=== PATIENT | female | born 1975 | race Hispanic/Latino ===

== ENCOUNTER 2017-05-07 04:18 | Emergency (ER) | payer OTHER ==
[2017-05-07 04:30] VITALS: BMI 26.9
[2017-05-07] MEDS ORDERED: Sodium Chloride 0.9% 1,000 ML IV STA (04:38)
[2017-05-07 04:46] VITALS: BP 125/69; PULSE 54; RESP 17; TEMP 97.5; O2SAT 100
--- NOTE | 2017-05-07 04:51 | ED PDOC ---
Arrival/HPI - General Chief Complaint: GI Problem Time Seen by Provider: 05/07/17 04:33 Historian: Patient - History of Present Illness Narrative History of Present Illness (Text): 05/07/17 04:44 41 year old female, with past medical history of gastric bypass, intussesception , abdominal surgery and repair of incisonal hernia, presents to the Emergency department complaining of nausea, vomiting, diarrhea, headache and abdominal discomfort since yesterday. Patient informs visiting dentist for an abscess for which she was prescribed penicillin on Wednesday. As per patient, the symptoms may be adverse effects from the penicillin and requests medical evaluation. Patient informs taking tylenol and nausea medication with improvement to symptoms. Patient states she had sick contact at home. Patient states her last menstrual period was three months ago and is currently on injectable control medication. Patient denies any fever, chills, chest pain, shortness of breath, trauma or any other complaints. Time/Duration: 24 hours Symptom Onset: Gradual Symptom Course: Improving Quality: Aching Activities at Onset: Light Context: Home Past Medical History - Provider Review Nursing Documentation Reviewed: Yes - Infectious Disease Hx of Infectious Diseases: None - Past Medical History Past Medical History: No Previous - Cardiac Hx Cardiac Disorders: No Hx Pacemaker: No - Pulmonary Hx Respiratory Disorders: No - Neurological Hx Neurological Disorder: No - HEENT Hx HEENT Disorder: No - Renal Hx Renal Disorder: No - Endocrine/Metabolic Hx Endocrine Disorders: No - Hematological/Oncological Hx Blood Disorders: No - Integumentary Hx Dermatological Disorder: No Other/Comment: PIERCING -NOSE - Musculoskeletal/Rheumatological Hx Musculoskeletal Disorders: No Hx Falls: No - Gastrointestinal Hx Gastrointestinal Disorders: Yes (GASTRIC BYPASS SX,) Other/Comment: 09-18-15 EXPLORATORY LAP,POST RESECTION OF BOWEL ANSATOMOSIS REVISION,REPAIR OF INCISIONAL HERNIA,LYSIS OF INTRAABDOMINAL ADHESIONS. - Genitourinary/Gynecological Hx Genitourinary Disorders: No Other/Comment: 1 C SECTION,OVARIAN CYSTECTOMY - Psychiatric Hx Psychophysiologic Disorder: Yes (INSOMNIA) Hx Emotional Abuse: No Hx Physical Abuse: No Hx Substance Use: No - Surgical History Hx Gastric Bypass Surgery: Yes Other/Comment: intussuspection and adhesion SX - Anesthesia Hx Anesthesia Reactions: No Hx Malignant Hyperthermia: No - Suicidal Assessment Feels Threatened In Home Enviroment: No Family/Social History - Physician Review Nursing Documentation Reviewed: Yes Family/Social History: No Known Family HX Smoking Status: Never Smoked Hx Alcohol Use: No Hx Substance Use: No Allergies/Home Meds Allergies/Adverse Reactions: Allergies No Known Allergies Allergy (Verified 09/18/15 18:32) Home Medications: Home Meds Medication Instructions Recorded Confirmed Acetaminophen [Tylenol Extra 500 mg PO DAILY PRN 09/11/15 02/21/16 Strength] Ascorbic Acid [Vitamin C] 1,000 mg PO DAILY 09/11/15 02/21/16 Cholecalciferol (Vitamin D3) 1,000 iu PO DAILY 09/11/15 02/21/16 [Vitamin D3] Multivit-Minerals/Ferrous Fum 1 tbs PO DAILY 09/11/15 02/21/16 [Multivitamin Liquid] Zolpidem [Ambien] 15 mg PO HS 09/11/15 02/21/16 Fioricet 1 tab PO Q6H PRN 09/18/15 02/21/16 Review of Systems - Physician Review All systems were reviewed & negative as marked: Yes - Review of Systems Constitutional: Normal. absent: Fevers Eyes: Normal ENT: Normal Respiratory: Normal. absent: SOB Cardiovascular: Normal. absent: Chest Pain Gastrointestinal: Abdominal Pain, Diarrhea, Nausea, Vomiting Genitourinary Female: Normal Musculoskeletal: Normal Skin: Normal Neurological: Headache Endocrine: Normal Hemo/Lymphatic: Normal Psychiatric: Normal Physical Exam Vital Signs Reviewed: Yes Vital Signs Temp Pulse Resp BP Pulse Ox 05/07/17 04:35 97.5 F L 54 L 17 125/69 100 Temperature: Afebrile Blood Pressure: Normal Pulse: Bradycardic Respiratory Rate: Normal Appearance: Positive for: Well-Appearing, Non-Toxic, Comfortable Pain Distress: None Mental Status: Positive for: Alert and Oriented X 3 - Systems Exam Head: Present: Atraumatic, Normocephalic Pupils: Present: PERRL Extroacular Muscles: Present: EOMI Conjunctiva: Present: Normal Mouth: Present: Dry Neck: Present: Normal Range of Motion Respiratory/Chest: Present: Clear to Auscultation, Good Air Exchange. No: Respiratory Distress, Accessory Muscle Use Cardiovascular: Present: Regular Rate and Rhythm, Normal S1, S2. No: Murmurs Abdomen: Present: Normal Bowel Sounds. No: Tenderness, Distention, Peritoneal Signs Back: Present: Normal Inspection Upper Extremity: Present: Normal Inspection. No: Cyanosis, Edema Lower Extremity: Present: Normal Inspection. No: Edema Neurological: Present: GCS=15, CN II-XII Intact, Speech Normal Skin: Present: Warm, Dry, Normal Color. No: Rashes Psychiatric: Present: Alert, Oriented x 3, Normal Insight, Normal Concentration Medical Decision Making ED Course and Treatment: 05/07/17 04:53 Impression: 41 year old female presents to the Emergency department complaining of nausea, vomiting, diarrhea and abdominal pain. Plan: -- Labs -- IV Fluids -- Zofran -- Reassess and disposition Progress Notes: 05/07/17 04:54 - Lab Interpretations Lab Results: 05/07/17 04:54 05/07/17 04:54 Lab Results 05/07/17 04:54: Sodium 138, Potassium 4.1, Chloride 107, Carbon Dioxide 24, Anion Gap 12, BUN 8, Creatinine 0.6 L, Est GFR ( Amer) > 60, Est GFR (Non -Af Amer) > 60, Random Glucose 92, Calcium 8.4, Total Bilirubin 0.2, AST 29, ALT 43, Alkaline Phosphatase 37 L, Total Protein 5.7 L, Albumin 3.5, Globulin 2.1, Albumin/Globulin Ratio 1.6 05/07/17 04:54: WBC 3.7 L D, RBC 3.50, Hgb 10.1 L, Hct 32.1 L, MCV 91.7, MCH 28.9, MCHC 31.5, RDW 15.9 H, Plt Count 181, MPV 9.6, Gran % 36.0 L, Lymph % ( Auto) 55.2 H, [place] % (Auto) 6.4 H, Eos % (Auto) 1.6, Baso % (Auto) 0.8, Gran # 1.34 L, Lymph # 2.1, [place] # 0.2, Eos # 0.1, Baso # 0.03 - Medication Orders Current Medication Orders: Discontinued Medications Acetaminophen (Tylenol 325mg Tab) 650 mg PO STAT STA Stop: 05/07/17 05:13 Last Admin: 05/07/17 05:56 Dose: 650 mg MAR Pain/Vitals Document 05/07/17 05:56 SS (Rec: 05/07/17 05:56 SS [id number]) Pain Reassessment Is This A Pain ReAssessment? No Sleep Is patient sleeping during reassessment? No Presence of Pain Presence of Pain Yes Location Pain Location Body Probate Judge Sodium Chloride (Sodium Chloride 0.9%) 1,000 mls @ 999 mls/hr IV .Q1H1M STA Stop: 05/07/17 05:38 Last Admin: 05/07/17 05:03 Dose: 999 mls/hr eMAR Start Stop Document 05/07/17 05:03 SS (Rec: 05/07/17 05:03 SS [id number]) Intravenous Solution Start Date 05/07/17 Start Time 05:03 End Date 05/07/17 End time 06:03 Total Infusion Time 60 Ondansetron HCl (Zofran Inj) 4 mg IVP STAT STA Stop: 05/07/17 04:41 Last Admin: 05/07/17 05:03 Dose: 4 mg IVP Administration Document 05/07/17 05:03 SS (Rec: 05/07/17 05:03 SS [id number]) Charges for Administration # of IVP Administrations 1 - Scribe Statement The provider has reviewed the documentation as recorded by the Scribe Hernán Fowler. All medical record entries made by the Scribe were at my direction and personally dictated by me. I have reviewed the chart and agree that the record accurately reflects my personal performance of the history, physical exam, medical decision making, and the department course for this patient. I have also personally directed, reviewed, and agree with the discharge instructions and disposition. Disposition/Present on Arrival - Present on Arrival Any Indicators Present on Arrival: No History of DVT/PE: No History of Uncontrolled Diabetes: No Urinary Catheter: No History of Decub. Ulcer: No History Surgical Site Infection Following: None - Disposition Have Diagnosis and Disposition been Completed?: Yes Diagnosis: Gastroenteritis Disposition: HOME/ ROUTINE Disposition Time: 06:10 Patient Plan: Discharge Condition: STABLE Prescriptions: Ondansetron ODT [Zofran ODT] 8 mg SL TID PRN #12 odt PRN Reason: Nausea/Vomiting Forms: [employer] (Rwandan)
[2017-05-07 05:16] LABS: BASO # 0.03 K/mm3 (0.0-2.0); BASO % 0.8 % (0.0-3.0); EOS # 0.1 (0.0-0.7); EOS % 1.6 % (1.5-5.0); GRAN # 1.34 (1.4-6.5); HEMOGLOBIN 10.1 g/dL (12.0-16.0); LYMPH # 2.1 (1.2-3.4); LYMPH % 55.2 % (22.0-35.0); MEAN CELL VOLUME 91.7 fl (80.0-105.0); MEAN CORPUSCULAR HEMOGLOBIN 28.9 pg (25.0-35.0); MEAN CORPUSCULAR HGB CONC 31.5 g/dl (31.0-37.0); MEAN PLATELET VOLUME 9.6 fl (7.0-11.0); MONO # 0.2 (0.1-0.6); MONO % 6.4 % (1.0-6.0); RBC 3.5 10^6/uL (3.5-6.1); RED CELL DISTRIBUTION WIDTH 15.9 % (11.5-14.5); WHITE BLOOD COUNT 3.7 10^3/ul (4.5-11.0)
[2017-05-07 05:41] LABS: ALBUMIN 3.5 g/dL (3.0-4.8); ALT/SGPT 43 U/L (7-56); AST/SGOT 29 U/L (14-36); BLOOD UREA NITROGEN 8 mg/dL (7-21); CALCIUM 8.4 mg/dL (8.4-10.5); GFR AFRICAN-AMERICAN > 60; GFR NON-AFRICAN AMERICAN > 60
[2017-05-07 06:00] LABS: ALB/GLOB RATIO 1.6 (1.1-1.8)
== END 2017-05-07 06:50 | disposition home or self-care (01) ==
LOC: ED 04:18
DX: K52.9 Noninfective gastroenteritis and colitis, unspecified (principal); Z98.84 Bariatric surgery status
CPT/HCPCS: 80053; 85025; 96361; 96374; 99283; J2405; J7040

== ENCOUNTER 2017-08-08 21:49 | Observation (INO) | payer OTHER ==
--- NOTE | 2017-08-08 22:21 | ED PDOC ---
Arrival/HPI - General Chief Complaint: Abdominal Pain Time Seen by Provider: 08/08/17 22:14 Historian: Patient - History of Present Illness Narrative History of Present Illness (Text): 08/08/17 22:21 Maryse Grande is a 42 year old female, whose past medical history includes gastric bypasss, intussusception, small bowel resection, chronic anemia , and ventral hernia repair, who presents to the Emergency department after developing lower abdominal pain while vacationing in [place] yesterday. Patient states she returned home today and still experiencing lower abdominal pain, now present on both sides of abdomen with associated nausea. Patient denies any diarrhea, fever, chills, urinary symptoms, or any other complaints. Symptom Onset: Gradual Symptom Course: Unchanged Activities at Onset: Light Context: Home Past Medical History - Provider Review Nursing Documentation Reviewed: Yes - Travel History If Yes, travel location?: [place] - Infectious Disease Hx of Infectious Diseases: None - Past Medical History Past Medical History: No Previous - Cardiac Hx Cardiac Disorders: No Hx Pacemaker: No - Pulmonary Hx Respiratory Disorders: No - Neurological Hx Neurological Disorder: No - HEENT Hx HEENT Disorder: No - Renal Hx Renal Disorder: No - Endocrine/Metabolic Hx Endocrine Disorders: No - Hematological/Oncological Hx Blood Disorders: No - Integumentary Hx Dermatological Disorder: No Other/Comment: PIERCING -NOSE - Musculoskeletal/Rheumatological Hx Musculoskeletal Disorders: No Hx Falls: No - Gastrointestinal Hx Gastrointestinal Disorders: Yes (GASTRIC BYPASS SX,) Other/Comment: 09-18-15 EXPLORATORY LAP,POST RESECTION OF BOWEL ANSATOMOSIS REVISION,REPAIR OF INCISIONAL HERNIA,LYSIS OF INTRAABDOMINAL ADHESIONS. - Genitourinary/Gynecological Hx Genitourinary Disorders: No Other/Comment: 1 C SECTION,OVARIAN CYSTECTOMY - Psychiatric Hx Psychophysiologic Disorder: Yes (INSOMNIA) Hx Emotional Abuse: No Hx Physical Abuse: No Hx Substance Use: No - Surgical History Hx Gastric Bypass Surgery: Yes Other/Comment: intussuspection and adhesion SX - Anesthesia Hx Anesthesia Reactions: No Hx Malignant Hyperthermia: No - Suicidal Assessment Feels Threatened In Home Enviroment: No Family/Social History - Physician Review Nursing Documentation Reviewed: Yes Family/Social History: Unknown Family HX Smoking Status: Never Smoked Hx Alcohol Use: No Hx Substance Use: No Allergies/Home Meds Allergies/Adverse Reactions: Allergies No Known Allergies Allergy (Verified 09/18/15 18:32) Home Medications: Home Meds Medication Instructions Recorded Confirmed Acetaminophen [Tylenol Extra 500 mg PO DAILY PRN 09/11/15 08/09/17 Strength] Ascorbic Acid [Vitamin C] 1,000 mg PO DAILY 09/11/15 08/09/17 Cholecalciferol (Vitamin D3) 1,000 iu PO DAILY 09/11/15 08/09/17 [Vitamin D3] Multivit-Minerals/Ferrous Fum 1 tbs PO DAILY 09/11/15 08/09/17 [Multivitamin Liquid] Zolpidem [Ambien] 15 mg PO HS 09/11/15 08/09/17 Fioricet 1 tab PO Q6H PRN 09/18/15 08/09/17 Alprazolam [Xanax] 0.25 mg PO HS 08/09/17 08/09/17 MedroxyPROGESTERone [Depo-Provera] 1 bottle IM Q30D MDD [id number] 08/09/17 Review of Systems - Physician Review All systems were reviewed & negative as marked: Yes - Review of Systems Constitutional: Normal. absent: Fevers Eyes: Normal ENT: Normal Respiratory: Normal. absent: SOB, Cough Cardiovascular: Normal. absent: Chest Pain Gastrointestinal: Abdominal Pain, Nausea. absent: Diarrhea, Vomiting Genitourinary Female: Normal. absent: Dysuria, Frequency, Hematuria, Urine Output Changes Musculoskeletal: Normal. absent: Back Pain, Neck Pain Skin: Normal. absent: Rash Neurological: Normal. absent: Headache, Dizziness Endocrine: Normal Hemo/Lymphatic: Normal Psychiatric: Normal Physical Exam Vital Signs Reviewed: Yes Vital Signs Temp Pulse Resp BP Pulse Ox 08/08/17 23:49 56 L 18 122/65 99 08/08/17 21:49 98.1 F 60 18 121/80 100 Temperature: Afebrile Blood Pressure: Normal Pulse: Regular Respiratory Rate: Normal Appearance: Positive for: Well-Appearing, Non-Toxic, Comfortable Pain Distress: None Mental Status: Positive for: Alert and Oriented X 3 - Systems Exam Head: Present: Atraumatic, Normocephalic Pupils: Present: PERRL Extroacular Muscles: Present: EOMI Conjunctiva: Present: Normal Mouth: Present: Moist Mucous Membranes Neck: Present: Normal Range of Motion Respiratory/Chest: Present: Clear to Auscultation, Good Air Exchange. No: Respiratory Distress, Accessory Muscle Use Cardiovascular: Present: Regular Rate and Rhythm, Normal S1, S2. No: Murmurs Abdomen: Present: Tenderness (Diffuse tenderness to lower right and left abdomen , left greater than right), Guarding (Voluntary guarding). No: Distention, Peritoneal Signs, Rebound Back: Present: Normal Inspection Upper Extremity: Present: Normal Inspection. No: Cyanosis, Edema Lower Extremity: Present: Normal Inspection. No: Edema Neurological: Present: GCS=15, CN II-XII Intact, Speech Normal Skin: Present: Warm, Dry, Normal Color. No: Rashes Psychiatric: Present: Alert, Oriented x 3, Normal Insight, Normal Concentration Medical Decision Making ED Course and Treatment: 08/08/17 22:21 Impression: 42 year old female complaining of bilateral lower abdominal pain and nausea. Plan: -- CT Abdomen and Pelvis with IV contrast -- Labs, lipase -- Urinalysis -- IV fluids -- Zofran -- Toradol -- Reassess and disposition Prior Visits: Notes and results from previous visits were reviewed. On 05/07/2017, pt was seen in the Emergency department for nausea, vomiting, diarrhea, headache, and abdominal discomfort. Pt was d/c home. Progress Notes: 08/09/17 00:00 CT Abdomen and Pelvis shows: Lung bases: No acute findings. ABDOMEN: Liver: Unremarkable. No mass. Gallbladder and bile ducts: Gallstones. No significant ductal dilation. Pancreas: No ductal dilation. No mass. Spleen: No splenomegaly. Adrenals: No mass. Kidneys and ureters: No mass. No hydronephrosis. Stomach and bowel: Postsurgical changes of stomach. Postsurgical changes of small bowel. Small bowel intussusception within left midabdomen at level of postsurgical changes. No definite mural thickening. No obstruction. Appendix: Normal caliber. No definite inflammation. PELVIS: Bladder: Unremarkable. Reproductive: Unremarkable as visualized. ABDOMEN and PELVIS: Intraperitoneal space: Trace free fluid within pelvis. No free air. Bones/joints: No acute fracture. Soft tissues: Breast implants. Vasculature: Unremarkable. No aneurysm. Lymph nodes: No pathologically enlarged lymph nodes. IMPRESSION: 1. Small bowel intussusception. 2. Incidental/non-acute findings are described above. residential door unit installer paged. 08/09/17 00:06 Case discussed with advertising vice president certified pest control technician, who is aware and agrees with plan. 08/09/17 00:[address] Ugarte's service, awaiting call back. 08/09/17 00:[address] Dickinson, who is aware and agrees with plan. Accepts pt in to hospitalist service. [facility] be [facility] to [facility] for abdominal pain and intussusception. cmo & president notified, - Lab Interpretations Lab Results: 08/08/17 22:10 08/08/17 22:10 Lab Results 08/08/17 22:10: WBC 6.4 D, RBC 4.01, Hgb 11.0 L, Hct 34.7 L, MCV 86.5 D, MCH 27.4, MCHC 31.7, RDW 15.4 H, Plt Count 308, MPV 9.7 08/08/17 22:10: Sodium 142, Potassium 4.3, Chloride 102, Carbon Dioxide 27, Anion Gap 17, BUN 8, Creatinine 0.7, Est GFR ( Amer) > 60, Est GFR (Non- Af Amer) > 60, Random Glucose 104, Calcium 9.6, Total Bilirubin 0.3, AST 26, ALT 30, Alkaline Phosphatase 70, Total Protein 7.5, Albumin 4.8, Globulin 2.8, Albumin/Globulin Ratio 1.7, Lipase 410 H 08/08/17 22:10: Urine Color Yellow, Urine Appearance Clear, Urine pH 6.0, Ur Specific [place] 1.015, Urine Protein Negative, Urine Glucose (UA) Negative, Urine Ketones Negative, Urine Blood Negative, Urine Nitrate Negative, Urine Bilirubin Negative, Urine Urobilinogen 0.2, Ur Leukocyte Esterase Negative I have reviewed the lab results: Yes - RAD Interpretation Radiology Orders: 08/08/17 22:19 ABD & PELVIS IV CONTRAST ONLY [CT] Stat General Science Teacher: Radiologist - Medication Orders Current Medication Orders: Sodium Chloride (Sodium Chloride 0.9%) 1,000 mls @ 100 mls/hr IV .Q10H RODRI Last Admin: 08/08/17 22:23 Dose: 100 mls/hr eMAR Start Stop Document 08/08/17 22:23 JOL (Rec: 08/08/17 22:23 JOL [facility] [id number]) Intravenous Solution Start Date 08/08/17 Start Time 22:23 Discontinued Medications Hydromorphone HCl (Dilaudid) 1 mg IVP STAT STA Stop: 08/08/17 22:33 Last Admin: 08/08/17 22:35 Dose: 1 mg MAR Pain Assessment Document 08/08/17 22:35 JOL (Rec: 08/08/17 22:44 [facility]-[id number]) Pain Reassessment Is this a pain reassessment? No Sleep Is patient sleeping during reassessment? No Presence of Pain Presence of Pain Yes Pain Scale Used Pain Scale Used Numeric Location Left, Right or Bilateral Bilateral Upper or Lower Lower Pain Location Body Site Abdomen Description Intensity of Pain at present 9 Pain Behavior Guarding Withdrawal from Touch Restlessness Facial Grimacing Thrashing Aggravating Factors ADL's Changing Position IVP Administration Document 08/08/17 22:35 JOL (Rec: 08/08/17 22:44 [facility]-[id number]) Charges for Administration # of IVP Administrations 1 Hydromorphone HCl (Dilaudid) 1 mg IVP STAT STA Stop: 08/08/17 23:26 Last Admin: 08/08/17 23:31 Dose: 1 mg MAR Pain Assessment Document 08/08/17 23:31 JOL (Rec: 08/08/17 23:32 [facility]-[id number]) Pain Reassessment Is this a pain reassessment? No Sleep Is patient sleeping during reassessment? No Presence of Pain Presence of Pain Yes Pain Scale Used Pain Scale Used Numeric Location Left, Right or Bilateral Bilateral Upper or Lower Lower Pain Location Body Site Abdomen Description Intensity of Pain at present 7 Pain Behavior Moaning Restlessness Facial Grimacing IVP Administration Document 08/08/17 23:31 JOL (Rec: 08/08/17 23:32 [facility]-[id number]) Charges for Administration # of IVP Administrations 1 Ketorolac Tromethamine (Toradol) 30 mg IVP ONCE ONE Stop: 08/08/17 22:20 Last Admin: 08/08/17 22:23 Dose: 30 mg MAR Pain Assessment Document 08/08/17 22:23 JOL (Rec: 08/08/17 22:24 [facility]-[id number]) Pain Reassessment Is this a pain reassessment? No Sleep Is patient sleeping during reassessment? No Presence of Pain Presence of Pain Yes Pain Scale Used Pain Scale Used Numeric Location Left, Right or Bilateral Bilateral Upper or Lower Lower Pain Location Body Site Abdomen Description Description Stabbing Intensity of Pain at present 10 IVP Administration Document 08/08/17 22:23 [facility] (Rec: 08/08/17 22:24 [id number] Charges for Administration # of IVP Administrations 1 Re-Assess: MAR Pain Assessment Document 08/08/17 23:23 [facility] (Rec: 08/08/17 23:43 [id number] Pain Reassessment Is this a pain reassessment? Yes Sleep Is patient sleeping during reassessment? No Presence of Pain Presence of Pain Yes Pain Scale Used Pain Scale Used Numeric Location Left, Right or Bilateral Bilateral Upper or Lower Lower Pain Location Body Site Abdomen Description Intensity of Pain at present 9 Pain not relieved and LIP/MD was Yes: new med orders notified Ondansetron HCl (Zofran Inj) 4 mg IVP ONCE ONE Stop: 08/08/17 22:20 Last Admin: 08/08/17 22:23 Dose: 4 mg IVP Administration Document 08/08/17 22:23 [facility] (Rec: 08/08/17 22:23 [id number] Charges for Administration # of IVP Administrations 1 - Scribe Statement The provider has reviewed the documentation as recorded by the Gita Acosta Provider Scribe Attestation: All medical record entries made by the Scribe were at my direction and personally dictated by me. I have reviewed the chart and agree that the record accurately reflects my personal performance of the history, physical exam, medical decision making, and the department course for this patient. I have also personally directed, reviewed, and agree with the discharge instructions and disposition. Disposition/Present on Arrival - Present on Arrival Any Indicators Present on Arrival: No History of DVT/PE: No History of Uncontrolled Diabetes: No Urinary Catheter: No History of Decub. Ulcer: No History Surgical Site Infection Following: None - Disposition Have Diagnosis and Disposition been Completed?: Yes Diagnosis: Abdominal pain, Intussusception Disposition: HOSPITALIZED Disposition Time: 00:39 Condition: STABLE Forms: [employer] (Armenian)
[2017-08-08] MEDS ORDERED: Sodium Chloride 0.9% 1,000 ML IV SCH (22:30)
[2017-08-08] MEDS ORDERED: HYDROmorphone 1 mg/ml ISec IVP STA ×2 (22:32→23:25)
[2017-08-08 22:38] LABS: MEAN CELL VOLUME 86.5 fl (80.0-105.0); MEAN CORPUSCULAR HEMOGLOBIN 27.4 pg (25.0-35.0); MEAN CORPUSCULAR HGB CONC 31.7 g/dl (31.0-37.0); MEAN PLATELET VOLUME 9.7 fl (7.0-11.0); RBC 4.01 10^6/uL (3.5-6.1); RED CELL DISTRIBUTION WIDTH 15.4 % (11.5-14.5); WHITE BLOOD COUNT 6.4 10^3/ul (4.5-11.0)
[2017-08-08 22:39] LABS: URINE BILIRUBIN NEGATIVE (NEGATIVE); URINE BLOOD NEGATIVE (NEGATIVE); URINE GLUCOSE (UA) NEGATIVE (NEGATIVE); URINE LEUKOCYTE ESTERASE NEGATIVE Leu/uL (NEGATIVE); URINE PROTEIN NEGATIVE mg/dL (<30 mg/dL); URINE UROBILINOGEN 0.2 E.U./dL (<1 E.U./dL)
[2017-08-08 22:40] LABS: ALB/GLOB RATIO 1.7 (1.1-1.8); ALBUMIN 4.8 g/dL (3.0-4.8); ALT/SGPT 30 U/L (7-56); AST/SGOT 26 U/L (14-36); BLOOD UREA NITROGEN 8 mg/dL (7-21); CALCIUM 9.6 mg/dL (8.4-10.5); GFR AFRICAN-AMERICAN > 60; GFR NON-AFRICAN AMERICAN > 60; LIPASE 410 U/L (23-300)
[2017-08-08 22:41] LABS: URINE APPEARANCE CLEAR (CLEAR); URINE COLOR YELLOW (YELLOW)
[2017-08-08] MEDS ORDERED: Iohexol 350 MG/100 ML VIAL ONE (22:54)
--- NOTE | 2017-08-08 23:54 | CT ---
EXAM: CT Abdomen and Pelvis With Intravenous Contrast CLINICAL HISTORY: 42 years old, female; Pain; Abdominal pain; Acute; Additional info: Lower abdominal pain TECHNIQUE: Axial computed tomography images of the abdomen and pelvis with intravenous contrast. All CT scans at this facility use one or more dose reduction techniques, viz.: automated exposure control; ma/kV adjustment per patient size (including targeted exams where dose is matched to indication; i.e. head); or iterative reconstruction technique. Coronal and sagittal reformatted images were created and reviewed. CONTRAST: 100 mL of OMNI 350 administered intravenously. COMPARISON: CT - ABD PELVIS PO IV CONTRAST 2015-09-04 04:58 FINDINGS: Lung bases: No acute findings. ABDOMEN: Liver: Unremarkable. No mass. Gallbladder and bile ducts: Gallstones. No significant ductal dilation. Pancreas: No ductal dilation. No mass. Spleen: No splenomegaly. Adrenals: No mass. Kidneys and ureters: No mass. No hydronephrosis. Stomach and bowel: Postsurgical changes of stomach. Postsurgical changes of small bowel. Small bowel intussusception within left midabdomen at level of postsurgical changes. No definite mural thickening. No obstruction. Appendix: Normal caliber. No definite inflammation. PELVIS: Bladder: Unremarkable. Reproductive: Unremarkable as visualized. ABDOMEN and PELVIS: Intraperitoneal space: Trace free fluid within pelvis. No free air. Bones/joints: No acute fracture. Soft tissues: Breast implants. Vasculature: Unremarkable. No aneurysm. Lymph nodes: No pathologically enlarged lymph nodes. IMPRESSION: 1. Small bowel intussusception. 2. Incidental/non-acute findings are described above.
[2017-08-09] MEDS ORDERED: HYDROmorphone 1 mg/ml ISec IVP STA (00:55)
--- NOTE | 2017-08-09 01:20 | CP.PCM.CON ---
History of Present Illness - History of Present Illness History of Present Illness: Surgery: Dr. Travis CC: Intussusecption HPI: 42F w. extensive surgical hx, underwent gastric bypass in 1996, this was complicated by intussusception in September of 2015 which required laparotomy, revision of gastric bypass and extensive TEX. In February of 2016, pt returned w. incarcerated incisional hernia, which required open repair w. mesh. Pt has not had any symptoms since this past weekend. She states that Wednesday night she began to notice intermittent R sided abd pain. She states that the pain increased in severity, moved to the L side, and became constant. Pain is described as stabbing. There are no alleviating or aggravating factors. She reports nausea, but no vomiting. She denies diarrhea. She states that she is passing flatus and having BM. She denies fever but reports occassional chills. In ED CT was done which showed L mid abd intussusception, for which surgery was consulted. PMH: anxiety PSH: Gastric bypass, revision of gastric bypass and TEX 2/2 intussuception, open repair of incisional hernia Meds: MAR reviewed NKDA Social: +ETOH, no tobacco/drugs Fhx: Non-contributory Review of Systems - Review of Systems All systems: reviewed and no additional remarkable complaints except (HPI) Past Patient History - Infectious Disease Hx of Infectious Diseases: None - Past Social History Smoking Status: Never Smoked - CARDIAC Hx Cardiac Disorders: No Hx Pacemaker: No - PULMONARY Hx Respiratory Disorders: No - NEUROLOGICAL Hx Neurological Disorder: No - HEENT Hx HEENT Problems: No - RENAL Hx Chronic Kidney Disease: No - ENDOCRINE/METABOLIC Hx Endocrine Disorders: No - HEMATOLOGICAL/ONCOLOGICAL Hx Blood Disorders: No - INTEGUMENTARY Hx Dermatological Problems: No Other/Comment: PIERCING -NOSE - MUSCULOSKELETAL/RHEUMATOLOGICAL Hx Musculoskeletal Disorders: No Hx Falls: No - GASTROINTESTINAL Hx Gastrointestinal Disorders: Yes (GASTRIC BYPASS SX,) Other/Comment: 09-18-15 EXPLORATORY LAP,POST RESECTION OF BOWEL ANSATOMOSIS REVISION,REPAIR OF INCISIONAL HERNIA,LYSIS OF INTRAABDOMINAL ADHESIONS. - GENITOURINARY/GYNECOLOGICAL Hx Genitourinary Disorders: No Other/Comment: 1 C SECTION,OVARIAN CYSTECTOMY - PSYCHIATRIC Hx Psychophysiologic Disorder: Yes (INSOMNIA) Hx Emotional Abuse: No Hx Physical Abuse: No Hx Substance Use: No - SURGICAL HISTORY Hx Gastric Bypass Surgery: Yes Other/Comment: intussuspection and adhesion SX - ANESTHESIA Hx Anesthesia Reactions: No Hx Malignant Hyperthermia: No Meds Allergies/Adverse Reactions: Allergies Allergy/AdvReac Type Severity Reaction Status Date / Time No Known Allergies Allergy Verified 09/18/15 18:32 - Medications Medications: Current Medications Sodium Chloride (Sodium Chloride 0.9%) 1,000 mls @ 100 mls/hr IV .Q10H RODRI Last Admin: 08/08/17 22:23 Dose: 100 mls/hr Physical Exam - Constitutional Appears: Non-toxic, No Acute Distress - Head Exam Head Exam: ATRAUMATIC, NORMOCEPHALIC - Eye Exam Eye Exam: EOMI - ENT Exam ENT Exam: Mucous Membranes Moist, Normal External Ear Exam - Neck Exam Neck exam: Positive for: Full Rom - Respiratory Exam Respiratory Exam: NORMAL BREATHING PATTERN. absent: Accessory Muscle Use, Respiratory Distress - Cardiovascular Exam Cardiovascular Exam: REGULAR RHYTHM - GI/Abdominal Exam GI & Abdominal Exam: Soft, Tenderness (L mid abd). absent: Distended, Firm, Guarding, Hernia, Mass, Rebound, Rigid - Extremities Exam Extremities exam: Negative for: calf tenderness, pedal edema - Neurological Exam Neurological exam: Alert, Oriented x3 - Psychiatric Exam Psychiatric exam: Normal Affect, Normal Mood - Skin Skin Exam: Dry, Normal Color, Warm Results - Vital Signs Recent Vital Signs: Last Vital Signs Temp 98.1 F 08/08/17 21:49 Pulse 56 L 08/08/17 23:49 Resp 18 08/08/17 23:49 BP 122/65 08/08/17 23:49 Pulse Ox 99 08/08/17 23:49 - Labs Result Diagrams: 08/10/17 06:15 08/10/17 06:15 - Imaging and Cardiology CT scan - abdomen Status: Image reviewed by me, Report reviewed by me Assessment & Plan - Assessment and Plan (Free Text) Assessment: 42F wPascale intussuception Plan: -NPO -IVF -pain managememnt -serial abd exams -likely OR if no improvement in symptoms -will dana Salazar PGY3
[2017-08-09] MEDS: Lactated Ringer's 1,000 ML IV SCH ×2 (02:01→15:05)
--- NOTE | 2017-08-09 02:03 | CP.PCM.HP ---
<Bertram Love - Last Filed: 08/09/17 02:17> History of Present Illness - History of Present Illness History of Present Illness: This patient is a 42 year old female with a PMHx of Anxiety who presents complaining of left sided abdominal pain. Patient states that the pain started on Wednesday night on the right sided and was intermittent. The pain then migrated to the left side and became a constant, sharp, 8/10 pain. She denies any relieving or exacerbating factors. She attempted tylenol to relieve the pain without any success. Patient has a history of intussepception and multiple abdominal surgeries including a gastric bypass that was revised. Abdominal CT scan showed small bowel intussusception. Patient states she is having bowel movements and passing flatus. ROS POSITIVES: Abdominal Pain, Chills, Nausea, headache, urinary straining. NEGATIVES: Fever, chest pain, SOB, vomiting, diarrhea, blood in stool, melena , constipation, dysuria, urinary frequency, hematuria PMH: Anxiety PSH: Gastric bypass, revision of gastric bypass and TEX 2/2 intussuception, open repair of incisional hernia Allergies: Denies SocialHx: Denies tobacco or illicit drug use. Admits to EtOH use. FamilyHx: Non-Contributory. Meds: MAR reviewed Surgeon: Dr. Mcbride Present on Admission - Present on Admission Any Indicators Present on Admission: No Review of Systems - Review of Systems Review of Systems: As per HPI Past Patient History - Infectious Disease Hx of Infectious Diseases: None - Past Social History Smoking Status: Never Smoked - CARDIAC Hx Cardiac Disorders: No Hx Pacemaker: No - PULMONARY Hx Respiratory Disorders: No - NEUROLOGICAL Hx Neurological Disorder: No - HEENT Hx HEENT Problems: No - RENAL Hx Chronic Kidney Disease: No - ENDOCRINE/METABOLIC Hx Endocrine Disorders: No - HEMATOLOGICAL/ONCOLOGICAL Hx Blood Disorders: No - INTEGUMENTARY Hx Dermatological Problems: No Other/Comment: PIERCING -NOSE - MUSCULOSKELETAL/RHEUMATOLOGICAL Hx Musculoskeletal Disorders: No Hx Falls: No - GASTROINTESTINAL Hx Gastrointestinal Disorders: Yes (GASTRIC BYPASS SX,) Other/Comment: 09-18-15 EXPLORATORY LAP,POST RESECTION OF BOWEL ANSATOMOSIS REVISION,REPAIR OF INCISIONAL HERNIA,LYSIS OF INTRAABDOMINAL ADHESIONS. - GENITOURINARY/GYNECOLOGICAL Hx Genitourinary Disorders: No Other/Comment: 1 C SECTION,OVARIAN CYSTECTOMY - PSYCHIATRIC Hx Psychophysiologic Disorder: Yes (INSOMNIA) Hx Emotional Abuse: No Hx Physical Abuse: No Hx Substance Use: No - SURGICAL HISTORY Hx Gastric Bypass Surgery: Yes Other/Comment: intussuspection and adhesion SX - ANESTHESIA Hx Anesthesia Reactions: No Hx Malignant Hyperthermia: No Meds Allergies/Adverse Reactions: Allergies Allergy/AdvReac Type Severity Reaction Status Date / Time No Known Allergies Allergy Verified 09/18/15 18:32 Physical Exam - Additional Findings Additional findings: - Constitutional Appears: Non-toxic, No Acute Distress - Head Exam Head Exam: ATRAUMATIC, NORMOCEPHALIC - Eye Exam Eye Exam: EOMI - ENT Exam ENT Exam: Mucous Membranes Moist, Normal External Ear Exam - Neck Exam Neck exam: Positive for: Full Rom - Respiratory Exam Respiratory Exam: NORMAL BREATHING PATTERN. absent: Accessory Muscle Use, Respiratory Distress - Cardiovascular Exam Cardiovascular Exam: REGULAR RHYTHM - GI/Abdominal Exam GI & Abdominal Exam: Soft, Tenderness (Left mid abdomen). absent: Distended, Firm, Guarding, Hernia, Mass, Rebound, Rigid - Extremities Exam Extremities exam: Negative for: calf tenderness, pedal edema - Neurological Exam Neurological exam: Alert, Oriented x3 - Psychiatric Exam Psychiatric exam: Normal Affect, Normal Mood - Skin Skin Exam: Dry, Normal Color, Warm Results - Vital Signs Recent Vital Signs: Last Vital Signs Temp 98.1 F 08/08/17 21:49 Pulse 56 L 08/08/17 23:49 Resp 18 08/08/17 23:49 BP 122/65 08/08/17 23:49 Pulse Ox 99 08/08/17 23:49 - Labs Result Diagrams: 08/08/17 22:10 08/08/17 22:10 Assessment & Plan - Assessment and Plan (Free Text) Assessment: 42 year old female with a PMHx of Anxiety admitted for evaluation and treatment of abdominal pain. CT of Abdomen shows intussuseption. Plan: Abdominal Pain/Intussusception NPO Fluids Pain Control: Dilaudid 0.5 Q4H PRN. General Surgery Consult (Dr. Mcbride) Proph Protonix/SCD's Patient discussed with Attending Bertram Love, PGY-1 <Louis Dickinson - Last Filed: 08/09/17 06:22> Results - Vital Signs Recent Vital Signs: Last Vital Signs Temp 98.1 F 08/08/17 21:49 Pulse 57 L 08/09/17 01:00 Resp 18 08/09/17 01:00 BP 121/67 08/09/17 01:00 Pulse Ox 99 08/09/17 01:00 - Labs Result Diagrams: 08/08/17 22:10 08/08/17 22:10 Labs: Laboratory Results - last 24 hr 08/09/17 01:50 PT 11.4 INR 1.00 APTT 22.3 L Attending/Attestation - Attestation I have personally seen and examined this patient.: Yes I have fully participated in the care of the patient.: Yes I have reviewed all pertinent clinical information: Yes Notes (Text): 08/09/17 04:08 Patient was seen when she was in 370-01. Medical record was reviewed. Agree with history , physical examination , assessment and plan. Following are my impressions. Lower abdominal pain. Elevated lipase level. Small bowel intussusception. History of Intussusception. Anemia. History of gastric bypass surgery. History exploratory laparotomy. History small bowel resection. Histor of gastritis. History of C section. History of UTI. History of asthma. History of ventral incisional hernia. Allergy to latex, fluticasone, solumedrol. Family history:Father of Mfyrs-Tzsr-Sonc cancer, primary in liver.
[2017-08-09 02:20] LABS: PARTIAL THROMBOPLASTIN TIME 22.3 Seconds (25.1-36.5); PROTHROMBIN TIME 11.4 SECONDS (9.4-12.5)
[2017-08-09] MEDS: HYDROmorphone 0.5 mg/0.5 ml ISec IVP PRN ×5 (03:28→21:38)
[2017-08-09 04:33] VITALS: BMI 27.4
[2017-08-09] MEDS ORDERED: Pneumococcal 23-Valent Vaccine IM ONE (04:33)
[2017-08-09 06:57] LABS: BASO # 0.02 K/mm3 (0.0-2.0); BASO % 0.4 % (0.0-3.0); EOS # 0.1 (0.0-0.7); EOS % 1.1 % (1.5-5.0); GRAN # 1.66 (1.4-6.5); GRAN % 35.6 % (50.0-68.0); HEMOGLOBIN 8.9 g/dL (12.0-16.0); LYMPH # 2.6 (1.2-3.4); LYMPH % 55.2 % (22.0-35.0); MEAN CELL VOLUME 86.6 fl (80.0-105.0); MEAN CORPUSCULAR HEMOGLOBIN 27.1 pg (25.0-35.0); MEAN CORPUSCULAR HGB CONC 31.3 g/dl (31.0-37.0); MEAN PLATELET VOLUME 9.7 fl (7.0-11.0); MONO # 0.4 (0.1-0.6); MONO % 7.7 % (1.0-6.0); RBC 3.28 10^6/uL (3.5-6.1); RED CELL DISTRIBUTION WIDTH 15.4 % (11.5-14.5); WHITE BLOOD COUNT 4.7 10^3/ul (4.5-11.0)
[2017-08-09 07:34] LABS: ALB/GLOB RATIO 1.5 (1.1-1.8); ALBUMIN 3.4 g/dL (3.0-4.8); ALT/SGPT 26 U/L (7-56); AST/SGOT 23 U/L (14-36); BLOOD UREA NITROGEN 7 mg/dL (7-21); CALCIUM 8.5 mg/dL (8.4-10.5); GFR AFRICAN-AMERICAN > 60; GFR NON-AFRICAN AMERICAN > 60
[2017-08-09] MEDS: Cholecalciferol 1,000 INTLU TAB PO SCH (09:33)
[2017-08-09] MEDS ORDERED: HYDROmorphone 0.5 mg/0.5 ml ISec IVP PRN ×2 (11:38→14:40)
[2017-08-09 13:25] LABS: HEMOGLOBIN 9.4 g/dL (12.0-16.0); MEAN CELL VOLUME 87.4 fl (80.0-105.0); MEAN CORPUSCULAR HEMOGLOBIN 27.6 pg (25.0-35.0); MEAN CORPUSCULAR HGB CONC 31.5 g/dl (31.0-37.0); MEAN PLATELET VOLUME 9.6 fl (7.0-11.0); RBC 3.41 10^6/uL (3.5-6.1); RED CELL DISTRIBUTION WIDTH 15.6 % (11.5-14.5); WHITE BLOOD COUNT 4.9 10^3/ul (4.5-11.0)
--- NOTE | 2017-08-09 20:22 | CON ---
DATE: 08/09/2017 REQUESTING PHYSICIAN: José Miguel Harper MD REASON FOR CONSULT: I have been asked to see this 42-year-old female with a complicated surgical history including gastric bypass, exploratory laparotomy for intussusception of the intestines after gastric bypass with revision of gastric bypass, and repair of incisional hernia, who comes to the hospital with abdominal pain which started while she was visiting [facility] 2 days ago. Pain initially began in the right mid abdomen and subsequently settled in the left mid abdomen. This was associated with nausea without vomiting. CT scan of the abdomen and pelvis was reviewed by me with the radiologist and shows small bowel intussusception at the level of the lower aspect of the left kidney in the left mid abdomen. PAST MEDICAL HISTORY: As above. She has a history of morbid obesity, anxiety. PAST SURGICAL HISTORY: As above. SOCIAL HISTORY: She denies cigarette smoking or alcohol abuse. FAMILY HISTORY: Noncontributory. REVIEW OF SYSTEMS: A 14-point review of systems is notable for left-sided abdominal pain, nausea, and vomiting. PHYSICAL EXAMINATION: GENERAL: Well-developed female lying in bed, in no acute distress. VITAL SIGNS: Reveal temperature of 97.5, blood pressure 99/59, heart rate 64. HEENT: Reveal sclerae to be white. Conjunctivae pink. NECK: Supple. CHEST: Reveals lungs to be clear. HEART: Reveals regular rate and rhythm. ABDOMEN: Soft, mild mid abdominal tenderness. No rebound or guarding. EXTREMITIES: Show no edema. LABORATORY DATA: Reveals white blood cell count 4.7, hemoglobin 8.9. Chemistries reveal normal electrolytes. IMPRESSION: Small bowel intussusception. RECOMMENDATIONS: Surgery with probable need for exploratory laparotomy with correction of her intestinal intussusception. Mil Mcknight MD
[2017-08-10] MEDS: HYDROmorphone 0.5 mg/0.5 ml ISec IVP PRN (00:24)
[2017-08-10] MEDS: Lactated Ringer's 1,000 ML IV SCH (01:22)
--- NOTE | 2017-08-10 06:47 | CP.PCM.PN ---
Objective - Vital Signs/Intake and Output Vital Signs (last 24 hours): Temp Pulse Resp BP Pulse Ox 97.6 F 55 L 20 121/66 99 08/09/17 16:00 08/09/17 16:00 08/09/17 16:00 08/09/17 16:00 08/09/17 16:00 Intake and Output: 08/09/17 08/10/17 18:59 06:59 Intake Total 1200 Balance 1200 - Medications Medications: Current Medications Cholecalciferol (Vitamin D) 1,000 intlu PO DAILY [facility] Last Admin: 08/09/17 09:33 Dose: 1,000 intlu Hydromorphone HCl (Dilaudid) 0.5 mg IVP Q6H PRN PRN Reason: Pain, moderate (4-7) Last Admin: 08/10/17 00:24 Dose: 0.5 mg Hydromorphone HCl (Dilaudid) 1 mg IVP Q6H PRN PRN Reason: Pain, severe (8-10) Last Admin: 08/09/17 21:38 Dose: 1 mg Lactated Ringer's (Lactated Ringer's) 1,000 mls @ 100 mls/hr IV .Q10H [facility] Last Admin: 08/10/17 01:22 Dose: 100 mls/hr Ondansetron HCl (Zofran Inj) 4 mg IVP Q4 PRN PRN Reason: Nausea/Vomiting Last Admin: 08/09/17 07:50 Dose: 4 mg Pantoprazole Sodium (Protonix Inj) 40 mg IVP DAILY [facility] Last Admin: 08/09/17 09:33 Dose: 40 mg - Labs Labs: 08/09/17 13:00 08/09/17 05:45 PT 11.4 SECONDS (9.4-12.5) 08/09/17 01:50 INR 1.00 (0.93-1.08) 08/09/17 01:50 APTT 22.3 Seconds (25.1-36.5) L 08/09/17 01:50
[2017-08-10 07:04] LABS: BASO # 0.01 K/mm3 (0.0-2.0); BASO % 0.3 % (0.0-3.0); EOS # 0.1 (0.0-0.7); GRAN # 1.66 (1.4-6.5); GRAN % 46.8 % (50.0-68.0); HEMOGLOBIN 9.1 g/dL (12.0-16.0); LYMPH # 1.5 (1.2-3.4); LYMPH % 42.4 % (22.0-35.0); MEAN CELL VOLUME 87.7 fl (80.0-105.0); MEAN CORPUSCULAR HEMOGLOBIN 27.4 pg (25.0-35.0); MEAN CORPUSCULAR HGB CONC 31.3 g/dl (31.0-37.0); MEAN PLATELET VOLUME 9.7 fl (7.0-11.0); MONO # 0.3 (0.1-0.6); MONO % 8.5 % (1.0-6.0); RBC 3.32 10^6/uL (3.5-6.1); RED CELL DISTRIBUTION WIDTH 15.5 % (11.5-14.5); WHITE BLOOD COUNT 3.5 10^3/ul (4.5-11.0)
[2017-08-10 07:15] LABS: ALB/GLOB RATIO 1.5 (1.1-1.8); ALBUMIN 3.3 g/dL (3.0-4.8); ALT/SGPT 30 U/L (7-56); AST/SGOT 23 U/L (14-36); BLOOD UREA NITROGEN 4 mg/dL (7-21); CALCIUM 8.5 mg/dL (8.4-10.5); GFR AFRICAN-AMERICAN > 60; GFR NON-AFRICAN AMERICAN > 60
--- NOTE | 2017-08-10 07:40 | CP.PCM.PN ---
Subjective - Date & Time of Evaluation Date of Evaluation: 08/10/17 Time of Evaluation: 07:34 - Subjective Subjective: Surgery Progress Note: Patient seen and assessed at bedside. Patient resting comfortably in bed. Patient endorses that her abdominal pain has significantly resolved and she is passing flatus. Patient denies fevers, chills, chest pain, SOB, abdominal pain, N/V/D/C or changes in urine output. Objective - Vital Signs/Intake and Output Vital Signs (last 24 hours): Temp Pulse Resp BP Pulse Ox 97.6 F 55 L 20 121/66 99 08/09/17 16:00 08/09/17 16:00 08/09/17 16:00 08/09/17 16:00 08/09/17 16:00 Intake and Output: 08/10/17 08/10/17 06:59 18:59 Intake Total 1200 Balance 1200 - Medications Medications: Current Medications Cholecalciferol (Vitamin D) 1,000 intlu PO DAILY [facility] Last Admin: 08/09/17 09:33 Dose: 1,000 intlu Hydromorphone HCl (Dilaudid) 0.5 mg IVP Q6H PRN PRN Reason: Pain, moderate (4-7) Last Admin: 08/10/17 00:24 Dose: 0.5 mg Hydromorphone HCl (Dilaudid) 1 mg IVP Q6H PRN PRN Reason: Pain, severe (8-10) Last Admin: 08/09/17 21:38 Dose: 1 mg Lactated Ringer's (Lactated Ringer's) 1,000 mls @ 100 mls/hr IV .Q10H [facility] Last Admin: 08/10/17 01:22 Dose: 100 mls/hr Ondansetron HCl (Zofran Inj) 4 mg IVP Q4 PRN PRN Reason: Nausea/Vomiting Last Admin: 08/09/17 07:50 Dose: 4 mg Pantoprazole Sodium (Protonix Inj) 40 mg IVP DAILY [facility] Last Admin: 08/09/17 09:33 Dose: 40 mg - Labs Labs: 08/10/17 06:15 08/10/17 06:15 PT 11.4 SECONDS (9.4-12.5) 08/09/17 01:50 INR 1.00 (0.93-1.08) 08/09/17 01:50 APTT 22.3 Seconds (25.1-36.5) L 08/09/17 01:50 - Constitutional Appears: Non-toxic, No Acute Distress - Head Exam Head Exam: ATRAUMATIC, NORMOCEPHALIC - Eye Exam Eye Exam: EOMI, Normal appearance - ENT Exam ENT Exam: Mucous Membranes Moist - Neck Exam Neck Exam: Full ROM - Respiratory Exam Respiratory Exam: NORMAL BREATHING PATTERN. absent: Accessory Muscle Use, Respiratory Distress - GI/Abdominal Exam GI & Abdominal Exam: Soft, Normal Bowel Sounds. absent: Distended, Firm, Guarding, Rigid, Tenderness, Rebound - Neurological Exam Neurological Exam: Alert, Awake, Oriented x3 - Psychiatric Exam Psychiatric exam: Normal Affect, Normal Mood - Skin Skin Exam: Dry, Intact, Normal Color, Warm Assessment and Plan - Assessment and Plan (Free Text) Assessment: 42 year old female who presented with intussusception Plan: -CLD; Will ADAT -Continue IVF until adequate PO intake -Continue pain management -Continue serial abdominal exams -Patients symptoms resolved and passing flatus; No plans for surgical interventions at this time -Discussed with attending Anthony Combs PGY1
[2017-08-10] MEDS ORDERED: Apap-Butalbital-Caffeine 325-50-40mg Tab PO ONE (08:13)
[2017-08-10 08:44] VITALS: BP 108/60; PULSE 52; RESP 17; TEMP 98.1; O2SAT 98
[2017-08-10] MEDS: Cholecalciferol 1,000 INTLU TAB PO SCH (10:42)
--- NOTE | 2017-08-10 13:16 | CP.PCM.DIS ---
<Felisa Suazo - Last Filed: 08/10/17 16:35> Provider - Provider Date of Admission: 08/09/17 00:35 Attending physician: Rachelle Granger MD Primary care physician: Murtaza Perry MD Consults: Surgery: Dr. Mcbride GI: Dr. Mcknight Time Spent in preparation of Discharge (in minutes): 45 Hospital Course - Lab Results Lab Results: Most Recent Lab Values WBC 3.5 10^3/ul (4.5-11.0) L D 08/10/17 06:15 RBC 3.32 10^6/uL (3.5-6.1) L 08/10/17 06:15 Hgb 9.1 g/dL (12.0-16.0) L 08/10/17 06:15 Hct 29.1 % (36.0-48.0) L 08/10/17 06:15 MCV 87.7 fl (80.0-105.0) 08/10/17 06:15 MCH 27.4 pg (25.0-35.0) 08/10/17 06:15 MCHC 31.3 g/dl (31.0-37.0) 08/10/17 06:15 RDW 15.5 % (11.5-14.5) H 08/10/17 06:15 Plt Count 184 10^3/uL (120.0-450.0) 08/10/17 06:15 MPV 9.7 fl (7.0-11.0) 08/10/17 06:15 Gran % 46.8 % (50.0-68.0) L 08/10/17 06:15 Lymph % (Auto) 42.4 % (22.0-35.0) H 08/10/17 06:15 [place] % (Auto) 8.5 % (1.0-6.0) H 08/10/17 06:15 Eos % (Auto) 2.0 % (1.5-5.0) 08/10/17 06:15 Baso % (Auto) 0.3 % (0.0-3.0) 08/10/17 06:15 Gran # 1.66 (1.4-6.5) 08/10/17 06:15 Lymph # (Auto) 1.5 (1.2-3.4) 08/10/17 06:15 [place] # (Auto) 0.3 (0.1-0.6) 08/10/17 06:15 Eos # (Auto) 0.1 (0.0-0.7) 08/10/17 06:15 Baso # (Auto) 0.01 K/mm3 (0.0-2.0) 08/10/17 06:15 PT 11.4 SECONDS (9.4-12.5) 08/09/17 01:50 INR 1.00 (0.93-1.08) 08/09/17 01:50 APTT 22.3 Seconds (25.1-36.5) L 08/09/17 01:50 Sodium 141 mmol/L (132-148) 08/10/17 06:15 Potassium 3.9 mmol/L (3.6-5.0) 08/10/17 06:15 Chloride 106 mmol/L (98-107) 08/10/17 06:15 Carbon Dioxide 29 mmol/L (21-33) 08/10/17 06:15 Anion Gap 11 (10-20) 08/10/17 06:15 BUN 4 mg/dL (7-21) L 08/10/17 06:15 Creatinine 0.5 mg/dl (0.7-1.2) L 08/10/17 06:15 Est GFR ( Amer) > 60 08/10/17 06:15 Est GFR (Non-Af Amer) > 60 08/10/17 06:15 Random Glucose 92 mg/dL (70-110) 08/10/17 06:15 Calcium 8.5 mg/dL (8.4-10.5) 08/10/17 06:15 Total Bilirubin 0.1 mg/dL (0.2-1.3) L 08/10/17 06:15 AST 23 U/L (14-36) 08/10/17 06:15 ALT 30 U/L (7-56) 08/10/17 06:15 Alkaline Phosphatase 56 U/L (38-126) 08/10/17 06:15 Total Protein 5.5 g/dL (5.8-8.3) L 08/10/17 06:15 Albumin 3.3 g/dL (3.0-4.8) 08/10/17 06:15 Globulin 2.2 gm/dL 08/10/17 06:15 Albumin/Globulin Ratio 1.5 (1.1-1.8) 08/10/17 06:15 Lipase 410 U/L (23-300) H 08/08/17 22:10 Urine Color Yellow (YELLOW) 08/08/17 22:10 Urine Appearance Clear (CLEAR) 08/08/17 22:10 Urine pH 6.0 (4.7-8.0) 08/08/17 22:10 Ur Specific [place] 1.015 (1.005-1.035) 08/08/17 22:10 Urine Protein Negative mg/dL (<30 mg/dL) 08/08/17 22:10 Urine Glucose (UA) Negative mg/dL (NEGATIVE) 08/08/17 22:10 Urine Ketones Negative mg/dL (NEGATIVE) 08/08/17 22:10 Urine Blood Negative (NEGATIVE) 08/08/17 22:10 Urine Nitrate Negative (NEGATIVE) 08/08/17 22:10 Urine Bilirubin Negative (NEGATIVE) 08/08/17 22:10 Urine Urobilinogen 0.2 E.U./dL (<1 E.U./dL) 08/08/17 22:10 Ur Leukocyte Esterase Negative Elizabeth/uL (NEGATIVE) 08/08/17 22:10 - Hospital Course Hospital Course: Upon Admission "42 year old female with a PMHx of Anxiety who presents complaining of left sided abdominal pain. Patient states that the pain started on Wednesday night on the right sided and was intermittent. The pain then migrated to the left side and became a constant, sharp, 8/10 pain. She denies any relieving or exacerbating factors. She attempted tylenol to relieve the pain without any success. 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 Patient was admitted to med/surg and Surgery Dr. Mcbride and GI Dr. Mcknight were consulted. Patient was put NPO and started on LR @ 100cc/hr and pain control. Over her hospital course, patient began to tolerate a liquid diet which was advanced to a regular diet with no pain. She passed flatus and had a BM and thus there were no plans for surgical intervention. On day of discharge patient had resolution of symptoms and was deemed medically stable for discharge. 1) Intussusception: resolved 2) Anxiety: chronic Upon Discharge Patient stable for discharge home Patient to resume home medications Patient to follow up with PMD within 7 days. If symptoms persist or worsen patient to visit ER immediately. Instructions discussed in detail with patient who understands and agrees. Discharge Exam - Head Exam Head Exam: ATRAUMATIC, NORMOCEPHALIC - Eye Exam Eye Exam: EOMI, Normal appearance, PERRL. absent: Conjunctival injection Pupil Exam: NORMAL ACCOMODATION - ENT Exam ENT Exam: Mucous Membranes Moist - Neck Exam Neck exam: Full Rom, Normal Inspection - Respiratory Exam Respiratory Exam: Clear to PA & Lateral, NORMAL BREATHING PATTERN. absent: Accessory Muscle Use, Decreased Breath Sounds, Rales, Rhonchi, Wheezes, Respiratory Distress - Cardiovascular Exam Cardiovascular Exam: REGULAR RHYTHM, RRR, +S1, +S2 - GI/Abdominal Exam GI & Abdominal Exam: Normal Bowel Sounds, Soft. absent: Distended, Firm, Tenderness Additional comments: abdominal surgical scars appreciated - Rectal Exam Rectal Exam: Deferred - Extremities Exam Extremities exam: normal capillary refill, normal inspection, pedal pulses present - Back Exam Back exam: absent: rash noted - Neurological Exam Neurological exam: Alert, CN II-XII Intact, Oriented x3 - Psychiatric Exam Psychiatric exam: Normal Affect, Normal Mood - Skin Skin Exam: Dry, Intact, Normal Color, Warm Discharge Plan - Follow Up Plan Condition: STABLE Disposition: HOME/ ROUTINE Instructions: Acute Abdomen (Belly Pain), Intussusception (DC) Additional Instructions: Patient stable for discharge home Patient to resume home medications Patient to follow up with PMD within 7 days. If symptoms persist or worsen patient to visit ER immediately. Instructions discussed in detail with patient who understands and agrees. Referrals: Murtaza Perry MD [Primary Care Provider] - <Rachelle Granger - Last Filed: 08/11/17 07:26> Provider - Provider Date of Admission: 08/09/17 00:35 Attending physician: Rachelle Granger MD Primary care physician: Murtaza Perry MD Hospital Course - Lab Results Lab Results: Most Recent Lab Values WBC 3.5 10^3/ul (4.5-11.0) L D 08/10/17 06:15 RBC 3.32 10^6/uL (3.5-6.1) L 08/10/17 06:15 Hgb 9.1 g/dL (12.0-16.0) L 08/10/17 06:15 Hct 29.1 % (36.0-48.0) L 08/10/17 06:15 MCV 87.7 fl (80.0-105.0) 08/10/17 06:15 MCH 27.4 pg (25.0-35.0) 08/10/17 06:15 MCHC 31.3 g/dl (31.0-37.0) 08/10/17 06:15 RDW 15.5 % (11.5-14.5) H 08/10/17 06:15 Plt Count 184 10^3/uL (120.0-450.0) 08/10/17 06:15 MPV 9.7 fl (7.0-11.0) 08/10/17 06:15 Gran % 46.8 % (50.0-68.0) L 08/10/17 06:15 Lymph % (Auto) 42.4 % (22.0-35.0) H 08/10/17 06:15 [place] % (Auto) 8.5 % (1.0-6.0) H 08/10/17 06:15 Eos % (Auto) 2.0 % (1.5-5.0) 08/10/17 06:15 Baso % (Auto) 0.3 % (0.0-3.0) 08/10/17 06:15 Gran # 1.66 (1.4-6.5) 08/10/17 06:15 Lymph # (Auto) 1.5 (1.2-3.4) 08/10/17 06:15 [place] # (Auto) 0.3 (0.1-0.6) 08/10/17 06:15 Eos # (Auto) 0.1 (0.0-0.7) 08/10/17 06:15 Baso # (Auto) 0.01 K/mm3 (0.0-2.0) 08/10/17 06:15 PT 11.4 SECONDS (9.4-12.5) 08/09/17 01:50 INR 1.00 (0.93-1.08) 08/09/17 01:50 APTT 22.3 Seconds (25.1-36.5) L 08/09/17 01:50 Sodium 141 mmol/L (132-148) 08/10/17 06:15 Potassium 3.9 mmol/L (3.6-5.0) 08/10/17 06:15 Chloride 106 mmol/L (98-107) 08/10/17 06:15 Carbon Dioxide 29 mmol/L (21-33) 08/10/17 06:15 Anion Gap 11 (10-20) 08/10/17 06:15 BUN 4 mg/dL (7-21) L 08/10/17 06:15 Creatinine 0.5 mg/dl (0.7-1.2) L 08/10/17 06:15 Est GFR ( Amer) > 60 08/10/17 06:15 Est GFR (Non-Af Amer) > 60 08/10/17 06:15 Random Glucose 92 mg/dL (70-110) 08/10/17 06:15 Calcium 8.5 mg/dL (8.4-10.5) 08/10/17 06:15 Total Bilirubin 0.1 mg/dL (0.2-1.3) L 08/10/17 06:15 AST 23 U/L (14-36) 08/10/17 06:15 ALT 30 U/L (7-56) 08/10/17 06:15 Alkaline Phosphatase 56 U/L (38-126) 08/10/17 06:15 Total Protein 5.5 g/dL (5.8-8.3) L 08/10/17 06:15 Albumin 3.3 g/dL (3.0-4.8) 08/10/17 06:15 Globulin 2.2 gm/dL 08/10/17 06:15 Albumin/Globulin Ratio 1.5 (1.1-1.8) 08/10/17 06:15 Lipase 410 U/L (23-300) H 08/08/17 22:10 Urine Color Yellow (YELLOW) 08/08/17 22:10 Urine Appearance Clear (CLEAR) 08/08/17 22:10 Urine pH 6.0 (4.7-8.0) 08/08/17 22:10 Ur Specific [place] 1.015 (1.005-1.035) 08/08/17 22:10 Urine Protein Negative mg/dL (<30 mg/dL) 08/08/17 22:10 Urine Glucose (UA) Negative mg/dL (NEGATIVE) 08/08/17 22:10 Urine Ketones Negative mg/dL (NEGATIVE) 08/08/17 22:10 Urine Blood Negative (NEGATIVE) 08/08/17 22:10 Urine Nitrate Negative (NEGATIVE) 08/08/17 22:10 Urine Bilirubin Negative (NEGATIVE) 08/08/17 22:10 Urine Urobilinogen 0.2 E.U./dL (<1 E.U./dL) 08/08/17 22:10 Ur Leukocyte Esterase Negative Elizabeth/uL (NEGATIVE) 08/08/17 22:10 Attending/Attestation - Attestation I have personally seen and examined this patient.: Yes I have fully participated in the care of the patient.: Yes I have reviewed all pertinent clinical information, including history, physical exam and plan: Yes Notes (Text): 08/10/17 42 year old female with past medical history of intussepcion and multiple abdominal surgeries including gastric bypass surgery presented with complaint of intractable abdominal pain. CT abd/pelvis showed small bowel intussepcion. She was NPO with iv fluids and analgesics. She was seen by surgery and GI who recommended conservative management. The following day her symptoms significantly improved and her diet was advanced which she tolerated. She is discharged home to follow up with her pmd. Follow up with GI and surgery. Rachelle Granger MD Hospitalist.
== END 2017-08-10 18:35 | disposition home or self-care (01) ==
LOC: ED 21:49 → ERH 08-09 00:35 → 3RSO 08-09 01:46
PROVIDERS: ADMIT Internal Medicine; ATTEND Internal Medicine
DX: K56.1 Intussusception (principal); F41.9 Anxiety disorder, unspecified; Z98.84 Bariatric surgery status; Z86.39 Personal history of other endocrine, nutritional and metabolic disease
CPT/HCPCS: 36415; 74177; 80053; 81003; 83690; 85025; 85027; 85610; 85730; 96374; 99285; C9113; G0378; J1170; J1885; J2405; J7040; J7120; Q9967